=== PATIENT | female | born 1965 | race Caucasian/White ===

== ENCOUNTER 2023-03-12 18:09 | Observation (INO) | payer MEDICAID, SELFPAY ==
[2023-03-12] VITALS (13 sets, daily range): BP systolic 100–169; BP diastolic 55–114; PULSE 65–97; RESP 13–25; TEMP 36.5–36.6; O2SAT 97–100
--- NOTE | ~2023-03-12 | CT_ITS ---
IMPRESSION: 1. Normal aging brain. 2. No aneurysm or significant intracranial arterial stenosis. 3. 0% stenosis of the proximal internal carotid arteries relative to normal dis lisa artery lumen diameters (NASCET criteria). EXAMINATION: CTA brain carotid DATE: 03/12/2023 22:40 INDICATION: Left-sided numbness. TECHNIQUE: Computed tomographic angiography (CTA) of the head was performed without and with 100 mL O mnipaque-350 intravenous contrast. CTA of the neck was performed with intravenous contrast. Automated exposure control and iterative reconstruction technique were employed. The dose-length product was 1 668.73 mGy-cm. Maximum intensity projection and volume rendered 3D-reconstructions were created by candace treadwell technologist on a separate workstation. COMPARISON: None. FINDINGS: HEAD CTA: There is no intracranial hemorrhage, acute infarction, or abnormal intracranial mass lesion . There are scattered areas of low attenuation in the cerebral white matter, which is within normal l imits for the patient's age. The ventricles are normal in size. The orbits are normal. The paranasal sinuses are clear. The mastoid air cells are normal. Left vertebral artery is dominant. There is no s ignificant stenosis of basilar artery or the posterior cerebral arteries. There is no significant catracho nosis of the intracranial internal carotid arteries or anterior or middle cerebral arteries. Anterior communicating artery is normal. The posterior communicating arteries are normal. There is no aneurys m. NECK CTA: There is a 3 mm nodule in the thyroid, likely not clinically significant. There are no path ologically enlarged lymph nodes. There is no significant stenosis of the vertebral arteries. There is minimal plaque in the proximal internal carotid arteries. There is 0% stenosis of the proximal right internal carotid artery relative to normal distal artery lumen diameter (NASCET criteria). There is 0% stenosis of the proximal left internal carotid artery relative to normal distal artery lumen diame ter. There is severe cervical spondylosis. IMPRESSION: 1. Normal aging brain. 2. No aneurysm or significant intracranial arterial stenosis. 3. 0% stenosis of the proximal internal carotid arteries relative to normal distal artery lumen diame ters (NASCET criteria). Reviewed, dictated and finalized at location E. L BLOCKER
--- NOTE | ~2023-03-12 | MR_ITS ---
MRI of the brain Clinical History: Paresthesias Technique: Axial and sagittal T1-weighted images were acquired. These were followed by axial T2-weigh kecia, diffusion weighted, gradient, and FLAIR images. Following intravenous administration of 16 cc Mu ltiHance gadolinium, T1-weighted fat-sat imaging was performed in the axial, coronal planes. Findings: There is no acute infarct, intracranial hemorrhage or mass lesion. There are minimal chroni c white matter changes in the periventricular white matter bilaterally. Ventricles and subarachnoid spaces are unremarkable. Orbits are unremarkable. Paranasal sinuses and m astoid air cells are clear. Major intracranial flow voids are intact. Sagittal midline structures are intact. No abnormal postcontrast enhancement identified. IMPRESSION: Minimal chronic microvascular ischemic changes, otherwise unremarkable exam. Reviewed, dictated and finalized at location M. ER INSPECTOR
--- NOTE | ~2023-03-12 | XR_ITS ---
Supine and upright views of the abdomen Clinical history: Abdominal pain Findings: Bowel gas pattern is nonspecific. No evidence for obstruction or free air. Cholecystectomy clips present. No abnormal mass lesion or calcification is seen. Osseous structures are intact. Impression: No significant abnormality is seen. Reviewed, dictated and finalized at [facility]. LETIONS ENGINEER Impression: No significant abnormality is seen.
--- NOTE | 2023-03-12 21:33 | ECG_ITS ---
Measurements Intervals [place] Rate: 59 P: 26 SD: 178 QRS: 26 QRSD: 81 T: 40 QT: 415 QTc: 413 Interpretive Statements SINUS BRADYCARDIA ATRIAL PREMATURE COMPLEX BORDERLINE ECG NO PREVIOUS ECG AVAILABLE FOR COMPARISON Electronically Signed On 03-13-2023 6:41:38 DIRECTOR OF STRATEGIC MARKETING by Efren Holder D.O.
--- NOTE | 2023-03-12 21:35 | ED.NEUROSD ---
HPI - Neuro Symptoms/Deficit General Chief Complaint: Neuro Symptoms/Deficit <ANSHUL Padilla Last Filed: 03/13/23 00:42> Stated Complaint: Numbness left sd face <ANSHUL Padilla Last Filed: 03/13/23 00:42> Time Seen by Provider: 03/12/23 20:34 <ANSHUL Padilla Last Filed: 03/13/23 00:42> Source: patient <ANSHUL Padilla Last Filed: 03/13/23 00:42> Mode of arrival: ambulatory <ANSHUL Padilla Last Filed: 03/13/23 00:42> Limitations: no limitations <ANSHUL Padilla Last Filed: 03/13/23 00:42> History of Present Illness HPI Narrative: Patient is a 58-year-old female who presents the ED with report of left sided numbness. Patient reports having numbness and tingling in her left sided face, left arm, and left toes for the last few days. States it began upon waking and has been constant since then. Does report intermittent worsening of numbness around her mouth. She denies weakness of left sided extremities. 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 Denies slurred speech, confusion, dizziness, lightheadedness, vision loss/double vision. Does also reports intermittent difficulty focusing, headache, nausea. Denies vomiting, abdominal pain, chest pain, shortness breath. Patient mentions having to cracked teeth in her left upper mouth, which began causing her pain 2 days ago. Started on amoxicillin for this yesterday by PCP. <ANSHUL Padilla Last Filed: 03/13/23 00:42> Related Data Home Medications: Home Medications Medication Instructions Recorded Confirmed alprazolam 0.5 mg tablet 0.5 mg PO BID 03/13/23 03/13/23 amoxicillin 875 mg tablet 875 mg PO BID 03/13/23 03/13/23 dextroamphetamine-amphetamine 30 1 tablet PO DAILY 03/13/23 03/13/23 mg tablet lisinopril 40 mg tablet 40 mg PO DAILY 03/13/23 03/13/23 omeprazole 10 mg capsule,delayed 10 mg PO DAILY 03/13/23 03/13/23 release <Lynn Vela PA-C - Last Filed: 03/13/23 00:42> Allergies/Adverse Reactions: Allergies Allergy/AdvReac Type Severity Reaction Status Date / Time ciprofloxacin Allergy Nausea and Verified 03/12/23 20:20 Vomiting Sulfa (Sulfonamide Allergy Itching Verified 03/12/23 20:20 Antibiotics) <Lynn Vela PA-C - Last Filed: 03/13/23 00:42> Review of Systems Review of Systems: CONSTITUTIONAL: Denies fever, chills, or sweats. EENT: See HPI. CARDIOVASCULAR: Denies chest pain, palpitations, or edema. RESPIRATORY: Denies cough or dyspnea. GASTROINTESTINAL: See HPI. GENITOURINARY: Denies dysuria or hematuria. MUSCULOSKELETAL: Denies back pain, extremity pain, myalgia. NEUROLOGIC: see HPI. <Lynn Vela PA-C - Last Filed: 03/13/23 00:42> All systems reviewed & are unremarkable except as noted in HPI and below <Lynn Vela PA-C - Last Filed: 03/13/23 00:42> [facility], [facility] Family History Family History: Family History (Updated 03/13/23 @ 01:26 by Skyla Calles RN) Father Acute myocardial infarction History of blood clots Chronic obstructive pulmonary disease Congestive heart failure Hypertension Sibling Hypertension <Lynn Vela PA-C - Last Filed: 03/13/23 00:42> Social History Social History: Social History Smoking status: Never smoker Alcohol intake: never Substance use: never Do You Feel Safe in your Home?: Yes Lack of Transportation: No Lack of Food: Never True Current Housing: I Have Housing Concerned About Future Housing: No Difficulty Paying Gas/Electric Bills: No Difficulty Paying for Meds: No Currently Unemployed: No Education: High School Diploma/GED Difficulty w/ Childcare or Family Care: No Spiritual care concerns:
[2023-03-12] MEDS: SODIUM CHLORIDE 0.9% IV 1,000 ML 999 ML IV CONT (22:03)
[2023-03-12] MEDS: ONDANSETRON INJ 4 MG/2 ML VIAL IV PUSH (22:04)
[2023-03-12] MEDS: ACETAMINOPHEN 500 MG TABLET 1000 MG PO (22:05)
[2023-03-12 22:12] LABS: Basophils Absolute Auto 0.1 K/mm3 (0.0-0.1); Basophils Percent Auto 0.6 % (0.2-1.2); Eosinophils Absolute Auto 0.1 K/mm3 (0-0.3); Eosinophils Percent Auto 1.2 % (0-4.4); Hematocrit 42.5 % (37.0-47.0); Hemoglobin 14.4 g/dL (12.0-15.0); Immature Granulocyte Absolute 0.02 K/mm3 (0.00-0.031); Immature Granulocyte Percent A 0.2 % (0-0.5); Lymphocytes Absolute Auto 4.31 K/mm3 (0.9-3.2); Mean Corpuscular HGB Conc 33.9 g/dl (32-36); Mean Corpuscular Hemoglobin 30.4 pg (26-34); Mean Corpuscular Volume 89.9 fl (80-100); Monocytes Absolute Auto 0.5 K/mm3 (0.1-0.6); Monocytes Percent Auto 5.8 % (2.6-8.5); Neutrophils Percent Auto 44.2 % (45.5-73.1); Platelet Count Result 282 k/mm3 (150-375); Red Blood Count 4.73 M/mm3 (4.2-5.4)
[2023-03-12 22:19] LABS: Appearance Urine Clear (Clear); Bacteria Urine None Seen /hpf; Bilirubin Urine Negative (Negative); Blood Urine 1+ (Negative); Color Urine Yellow (Yellow); Glucose Urine UA Negative (Negative); Ketones Urine Negative (Negative); Leukocyte Esterase Ur 1+ LEU/UL (Negative); Nitrate Urine Negative (Negative); Non Pathogenic Casts 0-2; Protein Urine Negative (Negative); RBC Urine 0-2 /hpf (0-2); Specific Grav Ur 1.016 (1.001-1.035); Squamous Epithelial Cell Urine Occasional /hpf (Few); Urobilinogen Urine 0.2 mg/dL (<2.0)
[2023-03-12 22:20] LABS: Add Urine Microscopic? YES
[2023-03-12 22:23] LABS: INR 0.9; Partial Thromboplastin Time 21.7 SECONDS (22.3-36.8); Prothrombin Time 12.6 Seconds (11.1-14.7)
[2023-03-12 22:25] LABS: Alanine Aminotransferase 34 U/L (6-35); Albumin Level 4.7 g/dL (3.5-5.1); Alkaline Phosphatase 74 U/L (38-126); Anion Gap 9 mmol/L (8-16); Aspartate Amino Transferase 32 U/L (14-36); Bilirubin,Total 0.9 mg/dL (0.2-1.3); Blood Urea Nitrogen 13 mg/dL (7-17); Calcium 9.6 mg/dL (8.4-10.2); Carbon Dioxide 25 mmol/L (22-30); Chloride 103 mmol/L (98-107); Estimated CRCL calculation 75 ml/min; Estimated Glomerular Filt Rate > 60; Glucose 93 mg/dL (65-110); Potassium 4.1 mmol/L (3.4-5.0); Sodium 137 mmol/L (137-145)
[2023-03-12 22:30] LABS: Ethanol < 10 mg/dL (<10)
[2023-03-12 22:31] LABS: Amphetamine Screen Urine Negative (Negative); Barbiturate Screen Urine Negative (Negative); Benzodiazepines Screen Urine Negative (Negative); Cannabinoid Screen Urine Negative (Negative); Cocaine Screen Urine Negative (Negative); Methadone Screen Urine Negative (Negative); Opiate Screen Urine Negative (Negative); Phencyclidine Screen Urine Negative (Negative)
[2023-03-12 22:36] LABS: Troponin I < 0.012 ng/mL (0.000-0.034)
[2023-03-12 22:51] LABS: Influenza A QL RT-PCR Negative (Negative); Influenza B QL RT-PCR Negative (Negative); RSV RNA, RT-PCR Negative (Negative); SARS-CoV-2 RNA PCR Negative (Negative)
[2023-03-13] VITALS (9 sets, daily range): BP systolic 106–133; BP diastolic 64–86; PULSE 60–80; RESP 14–19; TEMP 36.8–36.9; O2SAT 97–100; BMI 32.2
[2023-03-13] MEDS: MORPHINE SULFATE (*CRX) 4 MG/ML INJ IV PUSH (00:36)
[2023-03-13] MEDS: ONDANSETRON INJ 4 MG/2 ML VIAL IV PUSH ×2 (01:07→02:41)
--- NOTE | 2023-03-13 01:15 | ADMGEN ---
This patient, Jolynn Dahl, was admitted to Medical Room 248-01. Patient/family oriented to hospital policies and general routines including ID bracelet, bed and alarms, visiting hours, pain management, procedures, bathroom and other care routines, personal items, smoking policy, room service/diet, and visiting hours. Information on how to activate the Rapid Response Team has been discussed. Patient/Family are encouraged to report perceived risks to care and to ask questions if they do not understand what they are told or what they should do.
[2023-03-13] MEDS: ALPRAZolam (*CRX) 0.5 MG TABLET PO (08:37)
[2023-03-13] MEDS: lisinopriL 20 MG TABLET 40 MG PO (08:37)
[2023-03-13] MEDS: PANTOPRAZOLE SOD SESQUIHYDRATE 20 MG TAB PO (08:37)
[2023-03-13] MEDS: AMOXICILLIN 500 MG CAPSULE PO (08:37)
--- NOTE | 2023-03-13 09:20 | WPDNEURCNPN ---
Assessment and Plan Assessment and plan (1) Arm paresthesia, left: Code(s): R20.2 - Paresthesia of skin Status: Acute (2) Facial paresthesia: Code(s): R20.2 - Paresthesia of skin Status: Acute (3) Paresthesia of left foot: Code(s): R20.2 - Paresthesia of skin Status: Acute (4) Headache: Qualifiers: Headache chronicity pattern: acute headache Headache type: unspecified Intractability: not intractable Qualified Code(s): R51.9 - Headache, unspecified Code(s): R51.9 - Headache, unspecified Status: Acute Plan Jolynn Dahl is a 58 year old female with a history of HTN and anxiety presenting for evaluation of L sided numbness/paraesthesias. Most obvious concern is possible stroke as cause of symptoms. MRI brain is negative for stroke. By definition since she is still having symptoms wit the MRI being normal, would not be TIA. Symptoms could be anxiety related. - No further testing needed during this admission; recommend follow-up with PCP Consult date: 03/13/23 Reason for consult: L sided numbness HPI: Jolynn Dahl is a 58 year old female with a history of HTN and anxiety presenting for evaluation of L sided numbness/paraesthesias. Symptoms started about three days ago when patient woke-up. She reports numbness/tingling in the L face, LUE, and toes of the left foot. She denies any focal weakness, vision changes, speech changes. The only additional symptoms she had were headache, nausea, and dental pain in the L upper teeth. In the ED she had an EKG that showed sinus bradycardia. CT head showed no acute or subacute changes. CTA brain/carotid did not show any significant stenosis or any occlusion. UA showed 1+ LE, 6-10 WBC, but no bacteria with presence of squamous cells. UDS was negative Urine culture is pending. Blood pressure has been in the 100-130s systolic since admission. MRI brain is normal. After MRI, patient reporting persistent L facial numbness and LUE numbness as well as numbness in the L 3-5th toes. She does report that symptoms are worse with stress, as she had perioral numbness when she had the MRI brain done today. Review of Systems Review of Systems: All systems reviewed & are unremarkable except as noted in HPI and below PMFSH Past Medical History Medical History ADHD Anxiety Hypertension Family History Family History Father Acute myocardial infarction History of blood clots Chronic obstructive pulmonary disease Congestive heart failure Hypertension Sibling Hypertension Social History Social History Smoking status: Never smoker Alcohol intake: never Substance use: never Do You Feel Safe in your Home?: Yes Lack of Transportation: No Lack of Food: Never True Current Housing: I Have Housing Concerned About Future Housing: No Difficulty Paying Gas/Electric Bills: No Difficulty Paying for Meds: No Currently Unemployed: No Education: High School Diploma/GED Difficulty w/ Childcare or Family Care: No Spiritual care concerns: No Meds Home Medications and Allergies Home Medications Medication Instructions Recorded Confirmed Type alprazolam 0.5 mg tablet 0.5 mg PO BID 03/13/23 03/13/23 History amoxicillin 875 mg tablet 875 mg PO BID 03/13/23 03/13/23 History dextroamphetamine-amphetamine 30 1 tablet PO DAILY 03/13/23 03/13/23 History mg tablet lisinopril 40 mg tablet 40 mg PO DAILY 03/13/23 03/13/23 History omeprazole 10 mg capsule,delayed 10 mg PO DAILY 03/13/23 03/13/23 History release Allergies Allergy/AdvReac Type Severity Reaction Status Date / Time ciprofloxacin Allergy Nausea and Verified 03/12/23 20:20 Vomiting Sulfa (Sulfonamide Allergy Itching Verified 03/12/23 20:20 Antibiotics) Vital Signs Vital
[2023-03-13] MEDS: LORazepam INJ (*CRX) 2 MG/ML VIAL 1 MG IV PUSH (10:36)
--- NOTE | 2023-03-13 11:47 | PM.SD2 ---
Same Day Admit/Disch: HPI History of Present Illness Chief complaint: L Sided Paresthesias Narrative: Jolynn Dahl is a 58 year old female with a past medical history of anxiety and panic attacks, hypertension and ADHD that presented to the ED on 03/12/2023 due to several days of left-sided face, arm and toe numbness and tingling. She denies any chest pain, shortness a breath, slurred speech, facial droop, extremity weakness, dizziness, visual changes, lightheadedness and rash. She has no prior history of TIA or CVA. Patient does have a lot of anxiety in her life and takes care of her disabled son. CT of the brain and CTA of the brain and carotids were unremarkable with no significant stenosis. No electrolyte abnormalities, unremarkable basic labs and slightly abnormal UA with a 1+ leukocyte esterase, 6-10 wbc's and no urine bacteria. She is on amoxicillin for dental pain/abscess. Urine culture was sent off but she is not started on any additional antibiotics. Urine drug screen was also negative. Neurology was consulted and Neurology wanted patient admitted for MRI to rule out stroke versus demyelinating condition. MRI returned negative for acute stroke. Discussed with Neurology and patient will be discharged to follow-up with her primary care provider. Patient's symptoms appear to be anxiety related considering when patient's anxiety increased her numbness and tingling worsened. Again provides to follow-up with PCP regarding her anxiety medications. Labs and vital signs are stable she is medically clear for discharge at this time. [facility] Past Medical History Medical History (Updated 03/13/23 @ 12:29 by Mary Napoles PA-C) ADHD Anxiety Hypertension Family History Family History Father Acute myocardial infarction History of blood clots Chronic obstructive pulmonary disease Congestive heart failure Hypertension Sibling Hypertension Social History Social History Smoking status: Never smoker Alcohol intake: never Substance use: never Do You Feel Safe in your Home?: Yes Lack of Transportation: No Lack of Food: Never True Current Housing: I Have Housing Concerned About Future Housing: No Difficulty Paying Gas/Electric Bills: No Difficulty Paying for Meds: No Currently Unemployed: No Education: High School Diploma/GED Difficulty w/ Childcare or Family Care: No Spiritual care concerns: No Same Day Admit/Disch: Med Pre-admit Medications Home Medications Medication Instructions Recorded Confirmed Type alprazolam 0.5 mg tablet 0.5 mg PO BID 03/13/23 03/13/23 History amoxicillin 875 mg tablet 875 mg PO BID 03/13/23 03/13/23 History dextroamphetamine-amphetamine 30 1 tablet PO DAILY 03/13/23 03/13/23 History mg tablet lisinopril 40 mg tablet 40 mg PO DAILY 03/13/23 03/13/23 History omeprazole 10 mg capsule,delayed 10 mg PO DAILY 03/13/23 03/13/23 History release Exam Narrative: GENERAL: Comfortable, no acute distress HENMT: moist mucous membranes EYES: EOM intact b/l NECK: no lymphadenopathy RESPIRATORY: clear to auscultation CARDIO: RRR GI: soft, nontender, bowel sounds present SKIN: no rashes EXTREMITIES: no edema, redness or tenderness NEURO: Bilateral upper lower extremity strength 5/5, no facial droop, no pronator drift, no slurred speech DS: Data Data Completed and Pending Labs on day of discharge: Labs from last 24 hours 03/12/23 22:05 WBC 9.0 RBC 4.73 Hgb 14.4 Hct 42.5 MCV 89.9 MCH 30.4 MCHC 33.9 RDW 13.0 Plt Count 282 MPV 9.0 Immature Gran % (Auto) 0.2 Neut % (Auto) 44.2 L Lymph % (Auto) 48.0 H [place] % (Auto) 5.8 Eos % (Auto) 1.2 Baso % (Auto) 0.6 Lymph # (Auto) 4.31 H [place] # (Auto) 0.5 Eos # (Auto) 0.1 Baso # (Auto) 0.1 Abs Immat Gran (auto) 0.02 Absolute Neuts (auto) 4.0 Absolute Nuc
== END 2023-03-13 13:05 | disposition home or self-care (01) ==
LOC: ANHED 03-13 00:40 → ANH2MED 03-13 01:23
PROVIDERS: Admitting Provider Internal Medicine; Emergency Provider Physician Assistant; Visit Provider Hospitalist
DX: R20.2 Paresthesia of skin (principal); R51.9 Headache, unspecified; F41.9 Anxiety disorder, unspecified; F41.0 Panic disorder [episodic paroxysmal anxiety]; K08.89 Other specified disorders of teeth and supporting structures; F90.9 Attention-deficit hyperactivity disorder, unspecified type; I49.1 Atrial premature depolarization; I10 Essential (primary) hypertension; R10.9 Unspecified abdominal pain; Z20.822 Contact with and (suspected) exposure to COVID-19; Z79.899 Other long term (current) drug therapy; Z82.49 Family history of ischemic heart disease and other diseases of the circulatory system
CPT/HCPCS: 36415; 70496; 70498; 70553; 74018; 80053; 80307; 81001; 81025; 84484; 85025; 85610; 85730; 87086; 87637; 93005; 96374; 96375; 99285; A9270; A9577; G0378; J2060; J2270; J2405; J7030; Q9967